=== PATIENT | male | born 1985 | race Native Hawaiian/Other Pacific Islander ===

== ENCOUNTER 2023-07-02 23:14 | Inpatient (IN) | payer OTHER ==
[2023-07-02 23:50] VITALS: BMI 20.3
[2023-07-03] MEDS ORDERED: P-EPHED 60MG/TRIPROLIDI 2.5MG TABLET PO PRN (00:20)
[2023-07-03] MEDS ORDERED: LOPERAMIDE HCL 2 MG CAPSULE PO PRN ×2 (00:20→09:12)
[2023-07-03] MEDS ORDERED: BENZONATATE 200 MG CAPSULE PO PRN ×2 (00:20→09:12)
[2023-07-03] MEDS ORDERED: ACETAMINOPHEN 325 MG TABLET (FP) PO PRN ×2 (00:20→09:12)
[2023-07-03] MEDS ORDERED: guaiFENesin 600 MG TABLET.ER (FP) PO PRN ×2 (00:20→09:12)
[2023-07-03] MEDS ORDERED: MAGNESIUM HYDROX 2400MG/30ML ORAL SUSPENSION 30 ML CUP PO PRN ×2 (00:20→09:12)
[2023-07-03] MEDS ORDERED: POLYETHYLENE GLYCOL (HEALTHYLAX) 3350 17 GM PACKET PO PRN ×2 (00:20→09:12)
[2023-07-03] MEDS ORDERED: BISMUTH SUBSALICYLATE 524 MG/30 ML PO PRN (00:20)
[2023-07-03] MEDS ORDERED: MAG HYDROX/AL HYDROX/SIMETH 30 ML UNIT-DOSE CUP PO PRN ×2 (00:20→09:12)
[2023-07-03] MEDS ORDERED: IBUPROFEN 600 MG TABLET (FP) PO PRN ×2 (00:20→09:12)
[2023-07-03] MEDS ORDERED: DICYCLOMINE HCL 10 MG CAPSULE PO PRN ×2 (00:20→09:12)
[2023-07-03] MEDS ORDERED: BENZOCAINE/MENTHOL (CHLORASEPTIC ) LOZENGE MM PRN ×2 (00:20→09:12)
[2023-07-03] MEDS ORDERED: IBUPROFEN 400 MG TABLET (FP) PO PRN ×2 (00:20→09:12)
[2023-07-03] MEDS ORDERED: BISMUTH SUBSALICYLATE 262 MG/15 ML BTL PO PRN (09:12)
[2023-07-03] MEDS ORDERED: NALOXONE HCL 0.4 MG/ML VIAL IM PRN (09:12)
[2023-07-03] MEDS ORDERED: hydrOXYzine PAMOATE 25 MG CAPSULE (FP) PO PRN (09:12)
[2023-07-03] MEDS ORDERED: chlordiazePOXIDE HCL 25 MG CAPSULE PO PRN (09:12)
[2023-07-03] MEDS ORDERED: NALOXONE HCL (KLOXXADO) 8 MG SPRAY NS PRN (09:12)
[2023-07-03] MEDS ORDERED: ONDANSETRON *ODT* 4 MG TABLET SL PRN (09:12)
[2023-07-03] MEDS: chlordiazePOXIDE HCL 25 MG CAPSULE PO ONE (09:39)
[2023-07-03] MEDS: PRENATAL VITAMINS W/ FOLIC ACID TABLET (FP) PO SCH ×2 (09:39→09:49)
[2023-07-03] MEDS: METHOCARBAMOL 500 MG TABLET PO PRN ×2 (09:49→22:12)
[2023-07-03] MEDS: hydrOXYzine PAMOATE 25 MG CAPSULE (FP) PO PRN (09:49)
[2023-07-03] MEDS: PERMETHRIN (NIX CREAM SCALP RINSE) 59 ML 1% BOTTLE TP ONE (11:26)
[2023-07-03] MEDS: ONDANSETRON *ODT* 4 MG TABLET SL PRN (11:26)
[2023-07-03] MEDS: chlordiazePOXIDE HCL 25 MG CAPSULE PO SCH (11:28)
[2023-07-03] MEDS: FLU VACCINE (FLULAVAL) PF 60 MCG/0.5 ML SYRINGE 2023-2024 IM ONE (11:29)
[2023-07-03] MEDS: PNEUMOC 20-VAL CONJ-DIP CRM/PF 0.5 ML SYRINGE IM ONE (11:30)
[2023-07-03] MEDS: propRANOLol HCL 10 MG TABLET PO ONE (18:22)
[2023-07-03] MEDS ORDERED: THIAMINE 100 MG TABLET PO SCH (22:00)
[2023-07-03] MEDS ORDERED: MELATONIN 5 MG TABLETS PO SCH (22:00)
[2023-07-03] MEDS: THIAMINE 100 MG TABLET PO SCH (22:21)
[2023-07-03] MEDS: MELATONIN 5 MG TABLETS PO SCH (22:21)
[2023-07-04 12:27] LABS: HEMATOCRIT 30.2 % (35.4-49); HEMOGLOBIN 9.2 GM/dL (11.7-16.9); MCHC 30.5 g/dl (32.0-35.9); MEAN CELL VOLUME 65.7 fl (80-96); MEAN PLT VOLUME 8.9 fl (7.5-11.1); PLATELET COUNT 197 10^3/uL (134-434); RDW 21.6 % (11.9-15.9); WHITE BLOOD COUNT 7.9 K/mm3 (4.0-10.0)
[2023-07-04 12:43] LABS: POTASSIUM 4.4 mmol/L (3.5-5.1)
[2023-07-04 12:53] LABS: BLOOD UREA NITROGEN 11.2 mg/dL (7-18)
[2023-07-04 12:56] LABS: CREATININE 0.5 mg/dL (0.55-1.3)
[2023-07-04 12:59] LABS: BILIRUBIN,TOTAL 0.6 mg/dL (0.2-1); TOT PROT 8.6 g/dl (6.4-8.2)
[2023-07-04] MEDS: LACTULOSE 20 GM/30 ML UDC (FOR ORAL USE ONLY) PO SCH (18:13)
[2023-07-05] MEDS: chlordiazePOXIDE HCL 25 MG CAPSULE PO SCH (05:59)
[2023-07-05 12:47] LABS: HEMATOCRIT 33.3 % (35.4-49); HEMOGLOBIN 10.2 GM/dL (11.7-16.9); MCH 20.2 pg (25.7-33.7); MCHC 30.6 g/dl (32.0-35.9); MEAN CELL VOLUME 66.2 fl (80-96); MEAN PLT VOLUME 8.9 fl (7.5-11.1); PLATELET COUNT 190 10^3/uL (134-434); RBC 5.03 M/mm3 (4.00-5.60); WHITE BLOOD COUNT 13.8 K/mm3 (4.0-10.0)
[2023-07-05 12:52] LABS: POTASSIUM 3.9 mmol/L (3.5-5.1)
[2023-07-05 13:02] LABS: CALCIUM 9.4 mg/dL (8.5-10.1)
[2023-07-05 13:03] LABS: ALBUMIN 3.8 g/dl (3.4-5.0); BLOOD UREA NITROGEN 5.8 mg/dL (7-18)
[2023-07-05 13:06] LABS: CREATININE 0.6 mg/dL (0.55-1.3)
[2023-07-05 13:08] LABS: TOT PROT 8.5 g/dl (6.4-8.2)
[2023-07-05 13:11] LABS: BILIRUBIN,TOTAL 0.7 mg/dL (0.2-1)
[2023-07-06] MEDS: chlordiazePOXIDE HCL 10 MG CAPSULE PO PRN (02:08)
[2023-07-06] MEDS: chlordiazePOXIDE HCL 10 MG CAPSULE PO SCH (05:48)
[2023-07-07] MEDS: chlordiazePOXIDE HCL 10 MG CAPSULE PO SCH (05:55)
[2023-07-07] MEDS: NALTREXONE HCL 50 MG TABLET PO ONE (12:13)
[2023-07-08] MEDS: chlordiazePOXIDE HCL 10 MG CAPSULE PO ONE (05:34)
[2023-07-08 09:35] VITALS: BP 122/81; PULSE 85; RESP 18; TEMP 98.4
[2023-07-08] MEDS: NALTREXONE HCL 50 MG TABLET PO SCH (10:18)
== END 2023-07-08 10:20 | disposition home or self-care (01) | DRG 775 ==
LOC: YASAS 23:14 → Y3N 07-03 01:56
PROVIDERS: ADMIT Allergy & Immunology; ATTEND Surgery
PROC: HZ2ZZZZ Detoxification Services for Substance Abuse Treatment (ICD-10-PCS; principal; 2023-07-03)
DX: F10.230 Alcohol dependence with withdrawal, uncomplicated (principal); F12.10 Cannabis abuse, uncomplicated; I10 Essential (primary) hypertension; B85.2 Pediculosis, unspecified; R79.89 Other specified abnormal findings of blood chemistry; R76.8 Other specified abnormal immunological findings in serum; Z86.19 Personal history of other infectious and parasitic diseases
CPT/HCPCS: 0241U-QW; 36415; 80053; 80305; 80307; 82140; 85027; 86593; 86780; 87635; 87811; 90677; 90686; 93005; 93010; G0008; Q0162